=== PATIENT | female | born 1940 | race American Indian/Alaskan Native ===

== ENCOUNTER 2018-09-24 19:09 | Emergency (ER) | payer MEDICARE ==
[2018-09-24 19:33] VITALS: BP 178/85
--- NOTE | 2018-09-24 19:35 | Emergency Department Report ---
Blank Doc - Documentation Documentation: C/O lower abd /pelvic pain with blood in urine that started today. This initial assessment diagnostic orders/clinical plan/treatment (s) is/Are subject change based on patient's health status, clinical progression and re- assessment by fellow clinical providers in the ED. Further treatment and work-up at subsequent clinical providers discretion. Patient/guardians urged not to elope from s their condition may be serious if not clinically assessed and managed. Inital order include:
[2018-09-24 20:15] LABS: Bacteria,Urine 4+ /HPF (Negative)
[2018-09-24 20:22] LABS: Bilirubin,Urine Negative (Negative); Blood,Urine Large (Negative); Color,Urine Red (Yellow); RBC,Urine > 182.0 /HPF (0.0-6.0); Urobilinogen,Urine < 2.0 mg/dL (<2.0); WBC,Urine > 182.0 /HPF (0.0-6.0)
[2018-09-24] MEDS ORDERED: LEVAQUIN PO STA (22:00)
--- NOTE | 2018-09-24 22:56 | Emergency Department Report ---
ED Female HPI - General Chief complaint: Abdominal Pain Stated complaint: ABD PAIN/BLOOD IN URINE Time Seen by Provider: 09/24/18 19:33 Source: patient Mode of arrival: Ambulatory Limitations: No Limitations - History of Present Illness MD Complaint: dysuria -: Gradual, days(s) (1) Location: suprapubic Radiation: suprapubic Severity: mild Quality: burning Worsens with: urination Associated Symptoms: dysuria, hematuria, other (increased urgency decreased urinary production, increased frequency. She denies any flank pain, fevers, chills, sweats, nausea, vomiting, trauma). denies: vaginal bleeding, abdominal pain, nausea/vomiting, shortness of breath, syncope - Related Data Previous Rx's Medication Instructions Recorded Last Taken Type Ciprofloxacin HCl [Cipro] 500 mg PO BID #28 tablet 09/24/18 Unknown Rx Phenazopyridine [Pyridium] 200 mg PO BID PRN #10 tab 09/24/18 Unknown Rx Allergies Allergy/AdvReac Type Severity Reaction Status Date / Time No Known Allergies Allergy Unverified 08/18/14 10:05 ED Review of Systems ROS: Stated complaint: ABD PAIN/BLOOD IN URINE Other details as noted in HPI Constitutional: denies: chills, fever Eyes: denies: eye pain, eye discharge, vision change ENT: denies: ear pain, throat pain Respiratory: denies: cough, shortness of breath, wheezing Cardiovascular: denies: chest pain, palpitations Endocrine: no symptoms reported Gastrointestinal: denies: abdominal pain, nausea, diarrhea Genitourinary: dysuria. denies: urgency, discharge Musculoskeletal: denies: back pain, joint swelling, arthralgia Skin: denies: rash, lesions Neurological: denies: headache, weakness, paresthesias Psychiatric: denies: anxiety, depression Hematological/Lymphatic: denies: easy bleeding, easy bruising ED Past Medical Hx - Past Medical History Hx Hypertension: Yes Hx Diabetes: Yes Additional medical history: High Cholesterol, Glaucoma - Surgical History Past Surgical History?: Yes Additional Surgical History: Bilateral Cataract Surgery - Social History Smoking Status: Never Smoker Substance Use Type: None - Medications Home Medications: Home Medications Medication Instructions Recorded Confirmed Last Taken Type Ciprofloxacin HCl [Cipro] 500 mg PO BID #28 tablet 09/24/18 Unknown Rx Phenazopyridine [Pyridium] 200 mg PO BID PRN #10 tab 09/24/18 Unknown Rx ED Physical Exam - General Limitations: No Limitations General appearance: alert, in no apparent distress - Head Head exam: Present: atraumatic, normocephalic - Eye Eye exam: Present: normal appearance, PERRL Pupils: Present: normal accommodation - ENT ENT exam: Present: normal exam, mucous membranes moist - Neck Neck exam: Present: normal inspection, full ROM - Respiratory Respiratory exam: Present: normal lung sounds bilaterally. Absent: respiratory distress, wheezes, rales, chest wall tenderness, accessory muscle use, decreased breath sounds - Cardiovascular Cardiovascular Exam: Present: regular rate, normal rhythm. Absent: systolic murmur, diastolic murmur, rubs, gallop - GI/Abdominal GI/Abdominal exam: Present: soft, normal bowel sounds, other (no CVA tenderness.). Absent: distended, tenderness, guarding - Extremities Exam Extremities exam: Present: normal inspection, full ROM, normal capillary refill - Back Exam Back exam: Present: normal inspection. Absent: CVA tenderness (R), CVA tenderness (L) - Neurological Exam Neurological exam: Present: alert, oriented X3, CN II-XII intact, normal gait - Psychiatric Psychiatric exam: Present: normal affect, normal mood - Skin Skin exam: Present: warm, dry, intact, normal color. Absent: rash ED Course Vital Signs 09/24/18 19:26 Temperature 97.8 F Pulse Rate 115 H Respiratory 18 Rate Blood Pressure 178/85 [Left] O2 Sat by Pulse 98 Oximetry ED Medical Decision Making - Medical Decision Making Discussed with other than a virus and her diagnosis and need for completion and when to follow-up. Also advised her on when to return to the emergency department. Relatively asymptomatic at current with no significant to the pain. No flank tenderness. No fever or in the dizziness. No chest pain palpitations. Critical care attestation.: If time is entered above; I have spent that time in minutes in the direct care of this critically ill patient, excluding procedure time. ED Disposition Clinical Impression: UTI (urinary tract infection) Disposition: - TO HOME OR SELFCARE Is pt being admited?: No Does the pt Need Aspirin: No Condition: Stable Instructions: Abdominal Pain (ED), Urinary Tract Infection in Men (ED), Phenazopyridine (By mouth), Dysuria (ED) Referrals: MARCUS LAL MD [Primary Care Provider] - 3-5 Days
== END 2018-09-24 23:05 | disposition home or self-care (01) ==
LOC: ED 19:09
DX: N39.0 Urinary tract infection, site not specified (principal); I10 Essential (primary) hypertension; E11.9 Type 2 diabetes mellitus without complications; E78.00 Pure hypercholesterolemia, unspecified
CPT/HCPCS: 81001; 99283

== ENCOUNTER 2019-02-09 06:10 | Day surgery (SDC) | payer MEDICARE ==
[~2019-02-09 06:10] MED LIST: ANCEF/STERILE WATER 2 GM/20 ML IV NR
--- NOTE | 2019-02-09 07:24 | Anesthesia Day of Surgery ---
Anesthesia Day of Surgery - Day of Surgery Patient Examined: Yes Patient H&P Reviewed: Yes Patient is NPO: Yes
[2019-02-09] MEDS ORDERED: ZOFRAN IV PRN (07:25)
[2019-02-09] MEDS ORDERED: SUBLIMAZE IV PRN (07:25)
[2019-02-09] MEDS ORDERED: DIPRIVAN 10 MG/ML IV ONE (07:26)
[2019-02-09] MEDS ORDERED: SUBLIMAZE ONE (07:27)
--- NOTE | 2019-02-09 07:27 | Anesthesia Consultation ---
Anesthesia Consult and Med Hx Date of service: 02/09/19 - Airway Anesthetic Teeth Evaluation: Good ROM Head & Neck: Adequate Mental/Hyoid Distance: Adequate Mallampati Class: Class II Intubation Access Assessment: Probably Good - Pre-Operative Health Status ASA Pre-Surgery Classification: ASA3 Proposed Anesthetic Plan: General - Pulmonary Hx Smoking: No Hx Sleep Apnea: No (MARY PRE SCREEN LOW RISK.) - Cardiovascular System Hx Hypertension: Yes (X 20 YRS. States she can climb two flights of stairs) - Endocrine Hx Non-Insulin Dependent Diabetes: Yes (FBS 145) - Other Systems Hx Cancer: No
[2019-02-09] MEDS ORDERED: WATER FOR IRRIG STERILE IR ONE (07:52)
[2019-02-09] MEDS ORDERED: LACTATED RINGERS 1,000 ML IV SCH (08:00)
--- NOTE | 2019-02-09 08:35 | Short Stay Summary ---
Short Stay Documentation Date of service: 02/09/19 - History H&P: obtained from office - Allergies and Medications Current Medications: Allergies No Known Allergies Allergy (Verified 02/04/19 11:39) Home Medications Medication Instructions Recorded Confirmed Last Taken Type Alendronate Sodium [Fosamax] 70 mg PO QWEEK 02/04/19 02/04/19 Unknown History Aspirin 325 mg PO QDAY 02/04/19 02/04/19 Unknown History Brimonidine Tartrate/Timolol 1 drop OP DAILY 02/04/19 02/04/19 Unknown History [Combigan 0.2%-0.5% Eye Drops] Enalapril Maleate [Vasotec] 20 mg PO DAILY 02/04/19 02/04/19 Unknown History Pravastatin [Pravachol] 40 mg PO QHS 02/04/19 02/04/19 Unknown History glipiZIDE [Glucotrol] 5 mg PO QDAY 02/04/19 02/04/19 Unknown History hydroCHLOROthiazide [HCTZ] 25 mg PO QDAY 02/04/19 02/04/19 Unknown History metFORMIN [Glucophage] 500 mg PO BID 02/04/19 02/04/19 Unknown History Active Medications Cefazolin Sodium (Ancef/Sterile Water 2 Gm/20 Ml) 2 gm IV PREOP NR Stop: 02/09/19 23:59 Fentanyl (Sublimaze) 50 mcg IV Q5MIN PRN PRN Reason: Pain , Severe (7-10) Stop: 02/09/19 20:00 Lactated Ringer's (Lactated Ringers) 1,000 mls @ 125 mls/hr IV DIRECT MARY Ondansetron HCl (Zofran) 4 mg IV ONCE PRN PRN Reason: Nausea And Vomiting Stop: 02/09/19 16:00 - Brief post op/procedure progress note Date of procedure: 02/09/19 Pre-op diagnosis: bladder cancer Post-op diagnosis: same Procedure: cysto, rpg, bx bladder lesion---rt side Anesthesia: GETA Surgeon: SURESH LOPEZ Estimated blood loss: none Pathology: list Specimen disposition: to lab Condition: stable - Hospital course Hospital course: macrobid & norco on chart - Disposition Condition at discharge: Stable Disposition: DC-01 TO HOME OR SELFCARE Short Stay Discharge Plan Follow up with: MARCUS LAL MD [Primary Care Provider] - 7 Days
--- NOTE | 2019-02-09 09:10 | Fluoroscopy Report ---
FLUOROSCOPY RETROGRADE UROGRAPHY HISTORY: Dysuria, hematuria. FINDINGS: Fluoroscopy was provided by radiology during retrograde urography by the urologist. 8 fluor oscopic images are presented. 19 seconds of fluoroscopy was utilized. The images demonstrate normal-appearing bilateral renal collecting systems. No stones or abnormal dil atation was visualized. Bladder biopsy was performed per the procedural note. Please correlate with deepali munoz formal report from urology as needed. IMPRESSION: Normal bilateral retrograde pyelograms. Signer Name: Winston Turner Jr, MD Signed: 02/09/2019 9:06 AM Workstation Name: [id number]
[2019-02-09 10:06] VITALS: BP 139/58
--- NOTE | 2019-02-09 13:18 | Operative Report ---
PREOPERATIVE DIAGNOSIS: Bladder tumor. POSTOPERATIVE DIAGNOSES: Bladder tumor. PROCEDURE: Cystoscopy, bilateral retrograde pyelograms, biopsy of bladder lesion, right sidewall and fulguration. SURGEON: Kofi King MD. ANESTHESIA: General. ESTIMATED BLOOD LOSS: Minimal. FLUIDS: Crystalloid. COMPLICATIONS: No complications. INDICATIONS: This patient is a 78-year-old female who was seen earlier this year for hematuria. 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 She presents now for followup under general anesthesia. Risks, benefits, and complications were explained. The patient and her daughter agreed to proceed with surgical intervention. DESCRIPTION OF PROCEDURE: The patient was taken to the operative suite, placed in a supine position. After adequate general anesthesia, placed in a dorsal lithotomy position, prepped and draped in a sterile fashion. Pancystourethroscopy was performed with a 22-[place] Storz cystoscope. The patient was noted to have papillary bladder lesion, the right sidewall close to the bladder neck. No other masses or stones could be appreciated. Bilateral retrograde pyelograms were obtained with an 8 [place] catheter and 8 mL of contrast. No filling defects or obstruction. This is a small papillary lesion. Using cold cup biopsy forceps, I was able to remove it from the base, fulgurated the base, and approximately 3-5 mm area of normal mucosa. Adequate hemostasis was achieved. The patient tolerated the procedure well. She was extubated and taken to recovery room in stable condition. She will go home on [employer] and [employer]. [facility]# [id number] [facility]
--- NOTE | 2019-02-09 17:00 | Post Anesthesia Evaluation ---
- Post Anesthesia Evaluation Patient Participated: Yes Airway Patent: Yes Stable Respiratory Function: Yes Nausea/Vomiting: No Temp > 96.8F: Yes Pain Manageable: Yes Adequeate Hydration: Yes Anesthesia Complications: No
== END 2019-02-09 10:25 | disposition home or self-care (01) ==
LOC: OR 06:10
PROVIDERS: ATTEND Urology
DX: C67.5 Malignant neoplasm of bladder neck (principal); N30.80 Other cystitis without hematuria; H40.9 Unspecified glaucoma; E78.00 Pure hypercholesterolemia, unspecified; E11.39 Type 2 diabetes mellitus with other diabetic ophthalmic complication; I10 Essential (primary) hypertension; Z90.710 Acquired absence of both cervix and uterus; Z87.440 Personal history of urinary (tract) infections; Z98.890 Other specified postprocedural states; Z79.899 Other long term (current) drug therapy; Z79.84 Long term (current) use of oral hypoglycemic drugs; Z79.82 Long term (current) use of aspirin; Z98.49 Cataract extraction status, unspecified eye
CPT/HCPCS: 52224; 74420; 82803; 82962; 88305; A4217; C1758; J0690; J2704; J3010; J7120; Q9967